=== PATIENT | male | born 1945 | race Hispanic/Latino ===

== ENCOUNTER → 2024-06-16 | Outpatient (CLI) | payer OTHER ==
--- NOTE | 2024-06-16 11:23 | HMCIMG ---
CT ABDOMEN/PELVIS W/O CONTRAST REASON: ELEVATED PROSTATE SPECIFIC ANTIGEN COMPARISON: None. FINDINGS: Lung bases are clear. There are no focal liver lesions. There are normal-appearing kidneys.. Spleen and pancreas appear unremarkable. The gallbladder appears normal as well. There is mild sigmoid diverticulosis without evidence of diverticulitis. Bowel loops appear otherwise unremarkable. This includes normal appearance of the appendix There is no evidence of free fluid or intraperitoneal air. There are no focal fluid collections. Aorta and retroperitoneum appear normal. There is no retroperitoneal or pelvic lymphadenopathy. Prostate measures 5.4 cm right to left, 5.1 cm anterior to posterior and 6.3 cm superior to inferior. Seminal vesicles appear symmetrical and normal. Urinary bladder appears unremarkable. There is a small left inguinal hernia containing only mesenteric fat. Osseous structures appear unremarkable. IMPRESSION: 1. Mild sigmoid diverticulosis without evidence of diverticulitis. 2. Enlarged prostate with dimensions as described above. 3. Small left inguinal hernia containing only mesenteric fat. CT was performed with one or more following dose reduction techniques: automated exposure control, adjustment of the mA and kv according to patient's size, or use of a iterative reconstruction technique.
== END | disposition home or self-care (01) ==
LOC: RAH 09:54
PROVIDERS: ATTEND Urology
DX: K40.90 Unilateral inguinal hernia, without obstruction or gangrene, not specified as recurrent (principal); R97.20 Elevated prostate specific antigen [PSA]; K57.30 Diverticulosis of large intestine without perforation or abscess without bleeding; N40.0 Benign prostatic hyperplasia without lower urinary tract symptoms
CPT/HCPCS: 74176